=== PATIENT | female | born 1995 | race Caucasian/White ===

== ENCOUNTER 2021-06-23 13:19 | Inpatient (IN) ==
[2021-06-23 14:10] LABS: Appearance Urine Clear (Clear); Bacteria Urine Automated 1+ (Negative); Bilirubin Urine Negative (Negative); Blood Urine Negative (Negative); Cast Urine Automated 0 /lpf (0-5); Color Urine Yellow; Epithelial Cell Urine Auto 20-30 /lpf (0-5); Glucose Urine UA Negative (Negative); Ketones Urine Negative (Negative); Leukocyte Esterase Urine 2+ (Negative); Nitrite Urine Negative (Negative); Protein Urine Negative (Negative); RBC Urine Automated 0-4 /hpf (0-4); Specific Gravity Urine 1.006 (1.000-1.030); Urobilinogen Urine Negative (Negative); pH Urine 7.5 (4.5-7.5)
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
[2021-06-23 14:28] LABS: Amphetamines+Metham, Urine Neg (Neg); Barbiturates, Urine Neg (Neg); Benzodiazepine, Urine Neg (Neg); Cocaine, Urine Neg (Neg); MDMA (Ecstacy), Urine Neg (Neg); Methadone, Urine Neg (Neg); Opiate, Urine Neg (Neg); Phencyclidine, Urine Neg (Neg)
[2021-06-23 14:40] LABS: Basophils # (auto) 0.02 K/uL (0-0.2); Basophils % (auto) 0.3 %; Eosinophils # (auto) 0.04 K/uL (0-0.5); Eosinophils % (auto) 0.5 %; Hematocrit (blood only) 42.6 % (37-47); Immature Granulocytes # (auto) 0.01 K/uL (0.00-0.02); Immature Granulocytes % (auto) 0.1 %; Lymphocytes # (auto) 1.36 K/uL (1.2-3.4); Lymphocytes % (auto) 17.3 %; Mean Corpuscular Hemoglobin 29.8 pg (25-34); Mean Corpuscular Hgb Conc 35.2 g/dL (32-36); Mean Corpuscular Volume 84.5 fL (80-100); Mean Platelet Volume 9.3 fL (7.4-10.4); Monocytes # (auto) 0.55 K/uL (0.11-0.59); Neutrophils # (auto) 5.89 K/uL (1.4-6.5); Neutrophils % (auto) 74.8 %; Platelet Count 284 K/uL (130-400); RDW Coefficient of Variation 12.4 % (11.5-14.5); RDW Standard Deviation 37.7 fL (36.4-46.3); Red Blood Count 5.04 M/uL (4.2-5.4); White Blood Count 7.87 K/uL (4.8-10.8)
[2021-06-23 15:01] LABS: Albumin Level 4.2 gm/dl (3.4-5.0); BUN Creatinine Ratio 12.1 (10-20); Calcium 9.3 mg/dl (8.5-10.1); Creatinine Clr Calc Pharmacy 97.9 ml/min; Est GFR (African American) 125.5 ml/min; Est GFR (Non-African American) 108.3 ml/min; Potassium 3.9 mmol/L (3.5-5.1)
[2021-06-23 15:05] LABS: Pregnancy Test, Serum Negative (Negative)
[2021-06-23 15:11] LABS: Albumin Globulin Ratio 1.1 (0.9-2); Bilirubin,Total 0.4 mg/dl (0.2-1); Globulin 3.8 gm/dl (2.5-4.0); Thyroid Stimulating Hormone 1.08 uIu/ml (0.300-4.500)
[2021-06-23 15:12] LABS: Acetaminophen < 2 ug/ml (10-30)
[2021-06-23 15:13] LABS: Salicylate < 1.7 mg/dl (2.8-20)
[2021-06-23] MEDS ORDERED: SODIUM CHLORIDE 0.65% NA SOLN 45 ML (OCEAN) PRN (18:38)
[2021-06-23] MEDS ORDERED: ACETAMINOPHEN 325 MG TAB PO PRN (18:38)
[2021-06-23] MEDS ORDERED: BISMUTH SUBSALICYLATE LIQD 236 ML PO PRN (18:38)
[2021-06-23] MEDS ORDERED: hydrOXYzine HCl 25 MG TAB PO PRN ×2 (18:38)
[2021-06-23] MEDS ORDERED: ALUMINUM/MAGNESIUM SUSP 30 ML UDC PO PRN (18:38)
[2021-06-23] MEDS ORDERED: MAGNESIUM HYDROXIDE SUSP 30 ML UDC PO PRN (18:38)
[2021-06-23] MEDS ORDERED: FLUARIX QUADRIVALENT 0.5 ML SYR IM ONE (19:46)
[2021-06-24] MEDS ORDERED: ATOMOXETINE HCL 40 MG CAPSULE PO SCH (09:00)
[2021-06-24] MEDS: ESCITALOPRAM OXALATE 20 MG TAB PO SCH (09:35)
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
[2021-06-24] MEDS: POLYETHYLENE (MIRALAX) 17 GM PACK PO SCH (18:03)
[2021-06-25] MEDS: ESCITALOPRAM OXALATE 20 MG TAB PO SCH (08:55)
[2021-06-25] MEDS: ATOMOXETINE HCL 40 MG CAPSULE PO SCH (08:55)
--- NOTE | 2021-06-25 16:37 | Psychiatric Progress Note ---
Date of Service June 25, 2021 Impression / Recommendations Impression The patient is a 26 year old with a history of BEN, MDD, self-harm and ADHD who was admitted for worsening depression and SI with plans. The patient is deemed unstable and requires psychiatric hospitalization for diagnostic clarification, safety and stabilization, medication management and development of further coping skills. She is at high risk of acute harm to self given past suicide attempt, worsening depression, self-harm, Diagnostically seems consistent with possible BPAD type 2 vs MDD vs BPD. Her speech was quite rapid and tangential initially though it slowed down and she more concise as the interview progressed suggestive more of ADHD and anxiety. Past episodes sounding consistent with hypomania, family history of BPAD, early onset and hard to treat depression all seem consistent with BPAD 2 for which an augmentation for mood stabilization and bipolar depression would be helpful. Discussed option of latuda which she will consider. Abilify also an option or could consider cross-taper from lexapro to prozac since she is also on Strattera which offer NE effects. If this is more of a BPD picture then engagement in therapeutic milieu, safety planning, coping skills development, family meeting and establishment of further outpt supports may itself provide enough therapeutic benefit that a medication change may not be necessary. We discussed her symptom history and screenings on the mood disorder questionnaire and dolores BPD screen. Clinically I am not seeing significant evidence of BPD and suspect this is more of a BPAD 2 picture. Discussed again risks, benefits, alternatives of latuda including that it is not FDA-approved for BPAD type 2 and so would be a off-label use. Discussed that benefits would be to address depressive symptoms which have so far been non-responsive to two SSRI trials, she is already on strattera so would not recommend SNRI trial at this point, and she would like to avoid a trial of Wellbutrin nor Prozac given family members having poor responses. She would like to try latuda. Discussed that we will keep it at a low dose and risks including movement side effects (acute dystonia, TD, parkinsonism, akathisia) as well as cardiometabolic risks. (1) Depression with suicidal ideation: (2) ADHD: (3) Anxiety: 06/25/21--Initiate latuda 20mg q dinner for augmentation of depression/BPAD 2. Ordering baseline fasting lipid and glucose labs for tomorrow morning. AIMS score=0. Will continue lexapro and strattera. 06/24/21--Discussed option to augment depression tx with latuda. Will give her mood disorder questionnaire and Dolores BPD screen to complete for diagnostic clarification. Continuing home lexapro and strattera. Adding miralax which she takes at home for constipation. 06/23/21--The patient was admitted to the [facility]) on q15 min checks (behavioral with suicide precautions) for safety. The patient will participate in group, recreational, and milieu therapies and will be offered additional individual and family sessions as clinically appropriate. Inventory Assets Strengths: stable housing, job, family support Needs: therapist, coping skills Risk Factors Assessment : Yes Do You Have Access To A Gun?: No Health Problems: Yes Mental Health Diagnoses: Yes Previous Attempt: Yes Previous Attempt; Highly Lethal: Yes Previous Attempt; Didn't Tell Anyone: Yes Family History of Suicide: Yes Previous Psychiatric Hospitalization: No Hopelessness: Yes Smoker: No Protective Factors Assessment Shinto Beliefs: Yes Employed: Yes ([employer]) Stable Relationships: Yes Supportive Family: Yes Interval History Identifying Information 26 year old with a history of BEN, MDD, self-harm and ADHD who was admitted for worsening depression and SI with plans. Chief Complaint "I'm alright". Review of Systems Sleep Information Total Hours of Sleep: 7.25 Meal Information Percent Meal Consumed - Breakfast: 100 Percent Meal Consumed - Lunch: 100 Percent Meal Consumed - Dinner: 100 Subjective Subjective Patient was seen & assessed and interval progress reviewed with treatment team nursing and social work. She continues to have anxiety and depression but no SI today. She completed a MDQ and BPD screen which we reviewed. She has symptoms consistent with hypomania in the past as well as rating herself as having almost all of the BPD criteria symptoms. She was able to get some more family history of past medication trials. Family members have not responded well to prozac. Another family member also didn't respond well to Wellbutrin. Her mother also told her she had been on risperidone in the past as a child and developed more aggression on this. Physical Exam Psychiatric Orientation: alert and oriented x 3 Apperance: appropriately dressed and appropriately groomed Eye Contact: good eye contact Motor Behavior: steady gait and station and no abnormal motor movements Speech: normal rate/rhythm/volume of speech Affect: + anxious affect Mood: + depressed mood and + anxious mood Thought Process: + tangential thought process Thought Content: reality based without delusions Suicidal Thoughts: denies suicidal thoughts, denies suicidal plan and denies suicidal intent Homicidal Thoughts: denies homicidal thoughts Hallucinations: no auditory hallucinations and no visual hallucinations Cognition: recent memory grossly intact, remote memory grossly intact, attention grossly intact and language grossly intact Estimated Intelligence: consistent with education level Insight: + fair insight Judgement: + impaired judgement Vital Signs (Past 24 Hours) Last Vital Signs Temp 36.5 C 06/25/21 06:00 Pulse 87 06/25/21 06:20 Resp 14 06/25/21 06:00 BP 102/70 06/25/21 06:20 Pulse Ox 99 06/23/21 19:01 Results & Data ([facility]) Current Inpatient Medications Current Inpatient Medications: Current Inpatient Medications Acetaminophen (Acetaminophen 325 Mg Tab) 650 mg PO Q4H PRN PRN Reason: Headache or Minor Fever Stop: 07/23/21 18:37 Last Admin: 06/23/21 20:55 Dose: 650 mg Documented by: Al Hydrox/Mg Hydrox/Simethicone (Aluminum/Magnesium Susp 30 Ml Udc) 30 ml PO Q4H PRN PRN Reason: GI Upset Stop: 07/23/21 18:37 Atomoxetine HCl (Atomoxetine Hcl 40 Mg Capsule) 40 mg PO DAILY DARLYN Stop: 07/25/21 08:59 Last Admin: 06/25/21 08:55 Dose: 40 mg Documented by: Bismuth Subsalicylate (Bismuth Subsalicylate Liqd 236 Ml) 15 ml PO PRN PRN PRN Reason: Loose Stool Stop: 07/23/21 18:37 Escitalopram Oxalate (Escitalopram Oxalate 20 Mg Tab) 20 mg PO QAM DARLYN Stop: 07/24/21 08:59 Last Admin: 06/25/21 08:55 Dose: 20 mg Documented by: Hydroxyzine HCl (Hydroxyzine Hcl 25 Mg Tab) 50 mg PO HSZ PRN PRN Reason: Insomnia Stop: 07/23/21 18:37 Hydroxyzine HCl (Hydroxyzine Hcl 25 Mg Tab) 25 mg PO Q4H PRN PRN Reason: Anxiety Stop: 07/23/21 18:37 Last Admin: 06/25/21 11:28 Dose: 25 mg Documented by: Magnesium Hydroxide (Magnesium Hydroxide Susp 30 Ml Udc) 30 ml PO DAILY PRN PRN Reason: Constipation Stop: 07/23/21 18:37 Polyethylene Glycol (Polyethylene (Miralax) 17 Gm Pack) 17 gm PO QDD DARLYN Stop: 07/24/21 17:44 Last Admin: 06/24/21 18:03 Dose: 17 gm Documented by: Sodium Chloride (Sodium Chloride 0.65% Na Soln 45 Ml ([place])) 1 - 2 sprays NA PRN PRN PRN Reason: Nasal Dryness/Congestion Stop: 07/23/21 18:37 Mental Health & Subst Abuse Tx Therapist Name of Therapist: None System Integration Engineer Name of System Integration Engineer: None Post Discharge Appointments Primary Care Physician Name Of Family Doctor: Dr. Iggy Alanis
[2021-06-25] MEDS: POLYETHYLENE (MIRALAX) 17 GM PACK PO SCH (17:22)
[2021-06-25] MEDS: LURASIDONE HCL 40 MG TAB PO SCH (17:51)
--- NOTE | 2021-06-26 08:38 | Psychiatric Progress Note ---
Date of Service June 26, 2021 Impression / Recommendations Impression The patient is a 26 year old with a history of BEN, MDD, self-harm and ADHD who was admitted for worsening depression and SI with plans. The patient is deemed unstable and requires psychiatric hospitalization for diagnostic clarification, safety and stabilization, medication management and development of further coping skills. She is at high risk of acute harm to self given past suicide attempt, worsening depression, self-harm, Diagnostically seems consistent with possible BPAD type 2 vs MDD vs BPD. Her speech was quite rapid and tangential initially though it slowed down and she more concise as the interview progressed suggestive more of ADHD and anxiety. Past episodes sounding consistent with hypomania, family history of BPAD, early onset and hard to treat depression all seem consistent with BPAD 2 for which an augmentation for mood stabilization and bipolar depression would be helpful. Discussed option of latuda which she will consider. Abilify also an option or could consider cross-taper from lexapro to prozac since she is also on Strattera which offer NE effects. If this is more of a BPD picture then engagement in therapeutic milieu, safety planning, coping skills development, family meeting and establishment of further outpt supports may itself provide enough therapeutic benefit that a medication change may not be necessary. We discussed her symptom history and screenings on the mood disorder questionnaire and dolores BPD screen. Clinically I am not seeing significant evidence of BPD and suspect this is more of a BPAD 2 picture. Discussed again risks, benefits, alternatives of latuda including that it is not FDA-approved for BPAD type 2 and so would be a off-label use. Discussed that benefits would be to address depressive symptoms which have so far been non-responsive to two SSRI trials, she is already on strattera so would not recommend SNRI trial at this point, and she would like to avoid a trial of Wellbutrin nor Prozac given family members having poor responses. She would like to try latuda. Discussed that we will keep it at a low dose and risks including movement side effects (acute dystonia, TD, parkinsonism, akathisia) as well as cardiometabolic risks. Baseline fasting labs were normal. Having some side effects to latuda but wants to try it for another day before deciding if she wants to discontinue it. (1) Depression with suicidal ideation: (2) ADHD: (3) Anxiety: 06/26/21--Fasting glucose and lipid labs were WNL. Not acting on thoughts of self-harm. She's experiencing some sedation and emotional numbing since starting the latuda but she would like to try it for another day to see if this lessens or resolves. Discussed that if symptoms persist and latuda is discontinued then could consider augmentation with Wellbutrin or abilify or a trial of fluoxetine versus therapeutic focus on CBT/DBT strategies to manage ongoing mood symptoms. 06/25/21--Initiate latuda 20mg q dinner for augmentation of depression/BPAD 2. Ordering baseline fasting lipid and glucose labs for tomorrow morning. AIMS score=0. Will continue lexapro and strattera. 06/24/21--Discussed option to augment depression tx with latuda. Will give her mood disorder questionnaire and Dolores BPD screen to complete for diagnostic clarification. Continuing home lexapro and strattera. Adding miralax which she takes at home for constipation. 06/23/21--The patient was admitted to the [facility] ([facility] mental health unit) on q15 min checks (behavioral with suicide precautions) for safety. The patient will participate in group, recreational, and milieu therapies and will be offered additional individual and family sessions as clinically appropriate. Inventory Assets Strengths: stable housing, job, family support Needs: therapist, coping skills Risk Factors Assessment : Yes Do You Have Access To A Gun?: No Health Problems: Yes Mental Health Diagnoses: Yes Previous Attempt: Yes Previous Attempt; Highly Lethal: Yes Previous Attempt; Didn't Tell Anyone: Yes Family History of Suicide: Yes Previous Psychiatric Hospitalization: No Hopelessness: Yes Smoker: No Protective Factors Assessment Taoism Beliefs: Yes Employed: Yes ([employer]) Stable Relationships: Yes Supportive Family: Yes Interval History Identifying Information 26 year old with a history of BEN, MDD, self-harm and ADHD who was admitted for worsening depression and SI with plans. Chief Complaint "I feel like a bog body". Review of Systems Sleep Information Total Hours of Sleep: 6.75 Meal Information Percent Meal Consumed - Breakfast: 100 Percent Meal Consumed - Lunch: 100 Percent Meal Consumed - Dinner: 100 Subjective Subjective Patient was seen & assessed and interval progress reviewed with treatment team nursing and social work. Had some self-harm urges yesterday but was able to calm down and came to staff for support. Attending groups. Had fasting labs this morning. Reviewed her fasting labs together which were normal. She feels like the latuda last night made her tired which did help her sleep well but then today she felt "numb" and like a "bog body" which she described as essentially "zombies but without the missing brain". She does note she feels less depressed today. Physical Exam Psychiatric Orientation: alert and oriented x 3 Apperance: appropriately dressed and appropriately groomed Eye Contact: good eye contact Motor Behavior: steady gait and station and no abnormal motor movements Speech: normal rate/rhythm/volume of speech Affect: + anxious affect Mood: + depressed mood Thought Process: + perseveration Thought Content: reality based without delusions Suicidal Thoughts: denies suicidal thoughts Homicidal Thoughts: denies homicidal thoughts Hallucinations: no auditory hallucinations and no visual hallucinations Cognition: recent memory grossly intact, remote memory grossly intact, attention grossly intact and language grossly intact Estimated Intelligence: consistent with education level Insight: + fair insight Judgement: + fair judgement Vital Signs (Past 24 Hours) Last Vital Signs Temp 36.5 C 06/26/21 06:00 Pulse 82 06/26/21 06:42 Resp 14 06/26/21 06:00 BP 100/67 06/26/21 06:42 Pulse Ox 99 06/23/21 19:01 Results & Data ([facility]) Laboratory Results Laboratory Results - last 24 hr 06/26/21 07:21 Fasting Glucose Pending Triglycerides Pending Cholesterol Pending LDL Cholesterol, Calc Pending VLDL Cholesterol, Calc Pending HDL Cholesterol Pending Cholesterol/HDL Ratio Pending Current Inpatient Medications Current Inpatient Medications: Current Inpatient Medications Acetaminophen (Acetaminophen 325 Mg Tab) 650 mg PO Q4H PRN PRN Reason: Headache or Minor Fever Stop: 07/23/21 18:37 Last Admin: 06/23/21 20:55 Dose: 650 mg Documented by: Al Hydrox/Mg Hydrox/Simethicone (Aluminum/Magnesium Susp 30 Ml Udc) 30 ml PO Q4H PRN PRN Reason: GI Upset Stop: 07/23/21 18:37 Atomoxetine HCl (Atomoxetine Hcl 40 Mg Capsule) 40 mg PO DAILY DARLYN Stop: 07/25/21 08:59 Last Admin: 06/25/21 08:55 Dose: 40 mg Documented by: Bismuth Subsalicylate (Bismuth Subsalicylate Liqd 236 Ml) 15 ml PO PRN PRN PRN Reason: Loose Stool Stop: 07/23/21 18:37 Escitalopram Oxalate (Escitalopram Oxalate 20 Mg Tab) 20 mg PO QAM DARLYN Stop: 07/24/21 08:59 Last Admin: 06/25/21 08:55 Dose: 20 mg Documented by: Hydroxyzine HCl (Hydroxyzine Hcl 25 Mg Tab) 50 mg PO HSZ PRN PRN Reason: Insomnia Stop: 07/23/21 18:37 Hydroxyzine HCl (Hydroxyzine Hcl 25 Mg Tab) 25 mg PO Q4H PRN PRN Reason: Anxiety Stop: 07/23/21 18:37 Last Admin: 06/25/21 11:28 Dose: 25 mg Documented by: Lurasidone HCl (Lurasidone Hcl 40 Mg Tab) 20 mg PO DAILYBD DARLYN Stop: 07/25/21 17:14 Last Admin: 06/25/21 17:51 Dose: 20 mg Documented by: Magnesium Hydroxide (Magnesium Hydroxide Susp 30 Ml Udc) 30 ml PO DAILY PRN PRN Reason: Constipation Stop: 07/23/21 18:37 Polyethylene Glycol (Polyethylene (Miralax) 17 Gm Pack) 17 gm PO QDD DARLYN Stop: 07/24/21 17:44 Last Admin: 06/25/21 17:22 Dose: 17 gm Documented by: Sodium Chloride (Sodium Chloride 0.65% Na Soln 45 Ml ([place])) 1 - 2 sprays NA PRN PRN PRN Reason: Nasal Dryness/Congestion Stop: 07/23/21 18:37 Mental Health & Subst Abuse Tx Therapist Name of Therapist: None Motorsports Technician Name of Motorsports Technician: None Post Discharge Appointments Primary Care Physician Name Of Family Doctor: Dr. Iggy Alanis
[2021-06-26 08:41] LABS: Glucose Fasting 93 mg/dl (70-99)
[2021-06-26 08:48] LABS: Chol HDL Ratio 3; Cholesterol 147 mg/dl (0-200); HDL Cholesterol 55 mg/dl; LDL Cholesterol Calculated 77 mg/dl; Triglycerides 76 mg/dl (0-150); VLDL Cholesterol 15 mg/dl
[2021-06-26] MEDS: ATOMOXETINE HCL 40 MG CAPSULE PO SCH (09:29)
[2021-06-26] MEDS: ESCITALOPRAM OXALATE 20 MG TAB PO SCH (09:29)
[2021-06-26] MEDS: POLYETHYLENE (MIRALAX) 17 GM PACK PO SCH (17:23)
[2021-06-26] MEDS: LURASIDONE HCL 40 MG TAB PO SCH (17:23)
[2021-06-27] MEDS: ATOMOXETINE HCL 40 MG CAPSULE PO SCH (09:08)
[2021-06-27] MEDS: ESCITALOPRAM OXALATE 20 MG TAB PO SCH (09:08)
--- NOTE | 2021-06-27 10:29 | Psychiatric Progress Note ---
Date of Service June 27, 2021 Impression / Recommendations Impression The patient is a 26 year old with a history of BEN, MDD, self-harm and ADHD who was admitted for worsening depression and SI with plans. Trial of Latuda as augmentation for depression. Patient does not appear to meet full criteria for a hypomanic episode and reviewed that patients with a family history of bipolar often respond to mood stabilizers. Family history increases risk of any mood disorder and she could meet criteria for bipolar disorder in the future. Reviewed that her interpersonal issues are more likely mood and personality driven rather than borderline personality disorder at this time. (1) Depression with suicidal ideation: (2) ADHD: (3) Anxiety: 06/27/21--Reviewed care by Dr. Aldrich in italics. Continue current meds and treatment plan. 06/26/21--Fasting glucose and lipid labs were WNL. Not acting on thoughts of self-harm. She's experiencing some sedation and emotional numbing since starting the latuda but she would like to try it for another day to see if this lessens or resolves. Discussed that if symptoms persist and latuda is discontinued then could consider augmentation with Wellbutrin or abilify or a trial of fluoxetine versus therapeutic focus on CBT/DBT strategies to manage ongoing mood symptoms. 06/25/21--Initiate latuda 20mg q dinner for augmentation of depression/BPAD 2. Ordering baseline fasting lipid and glucose labs for tomorrow morning. AIMS score=0. Will continue lexapro and strattera. 06/24/21--Discussed option to augment depression tx with latuda. Will give her mood disorder questionnaire and Christiana BPD screen to complete for diagnostic clarification. Continuing home lexapro and strattera. Adding miralax which she takes at home for constipation. 06/23/21--The patient was admitted to the [facility] ([facility] mental health unit) on q15 min checks (behavioral with suicide precautions) for safety. The patient will participate in group, recreational, and milieu therapies and will b e offered additional individual and family sessions as clinically appropriate. Inventory Assets Strengths: stable housing, job, family support Needs: therapist, coping skills Risk Factors Assessment : Yes Do You Have Access To A Gun?: No Health Problems: Yes Mental Health Diagnoses: Yes Previous Attempt: Yes Previous Attempt; Highly Lethal: Yes Previous Attempt; Didn't Tell Anyone: Yes Family History of Suicide: Yes Previous Psychiatric Hospitalization: No Hopelessness: Yes Smoker: No Protective Factors Assessment Gnosticism Beliefs: Yes Employed: Yes ([employer]) Stable Relationships: Yes Supportive Family: Yes Interval History Identifying Information 26 year old with a history of BEN, MDD, self-harm and ADHD who was admitted for worsening depression and SI with plans. Chief Complaint "yeah things are coming along". Review of Systems Sleep Information Total Hours of Sleep: 5 Meal Information Percent Meal Consumed - Breakfast: 100 Percent Meal Consumed - Lunch: 100 Percent Meal Consumed - Dinner: 100 Subjective Subjective Patient was seen & assessed and interval progress reviewed with nursing and social work. Impulse control improving in the milieu, mainly talking out of turn/topic at times. Has discussed her mother's bipolar symptoms. Plans to return to work at [employer]. Asked appropriate questions re: her diagnosis and reconsented for Latuda following discussion of risks and benefits. Physical Exam Psychiatric Orientation: alert and oriented x 3 Apperance: appropriately dressed and appropriately groomed Eye Contact: good eye contact Motor Behavior: steady gait and station and no abnormal motor movements Speech: normal rate/rhythm/volume of speech Affect: + anxious affect Mood: + depressed mood and + anxious mood Thought Process: + concrete thought process Thought Content: reality based without delusions Suicidal Thoughts: denies suicidal thoughts, denies suicidal plan and denies suicidal intent Homicidal Thoughts: denies homicidal thoughts Hallucinations: no auditory hallucinations and no visual hallucinations Cognition: recent memory grossly intact, remote memory grossly intact, attention grossly intact and language grossly intact Estimated Intelligence: consistent with education level Insight: + fair insight Vital Signs (Past 24 Hours) Last Vital Signs Temp 36.6 C 06/27/21 06:58 Pulse 80 06/27/21 06:58 Resp 16 06/27/21 06:58 BP 97/65 L 06/27/21 07:00 Pulse Ox 99 06/23/21 19:01 Results & Data ([facility]) Current Inpatient Medications Current Inpatient Medications: Current Inpatient Medications Acetaminophen (Acetaminophen 325 Mg Tab) 650 mg PO Q4H PRN PRN Reason: Headache or Minor Fever Stop: 07/23/21 18:37 Last Admin: 06/23/21 20:55 Dose: 650 mg Documented by: Al Hydrox/Mg Hydrox/Simethicone (Aluminum/Magnesium Susp 30 Ml Udc) 30 ml PO Q4H PRN PRN Reason: GI Upset Stop: 07/23/21 18:37 Atomoxetine HCl (Atomoxetine Hcl 40 Mg Capsule) 40 mg PO DAILY DARLYN Stop: 07/25/21 08:59 Last Admin: 06/27/21 09:08 Dose: 40 mg Documented by: Bismuth Subsalicylate (Bismuth Subsalicylate Liqd 236 Ml) 15 ml PO PRN PRN PRN Reason: Loose Stool Stop: 07/23/21 18:37 Escitalopram Oxalate (Escitalopram Oxalate 20 Mg Tab) 20 mg PO QAM DARLYN Stop: 07/24/21 08:59 Last Admin: 06/27/21 09:08 Dose: 20 mg Documented by: Hydroxyzine HCl (Hydroxyzine Hcl 25 Mg Tab) 50 mg PO HSZ PRN PRN Reason: Insomnia Stop: 07/23/21 18:37 Hydroxyzine HCl (Hydroxyzine Hcl 25 Mg Tab) 25 mg PO Q4H PRN PRN Reason: Anxiety Stop: 07/23/21 18:37 Last Admin: 06/25/21 11:28 Dose: 25 mg Documented by: Lurasidone HCl (Lurasidone Hcl 40 Mg Tab) 20 mg PO DAILYBD DARLYN Stop: 07/25/21 17:14 Last Admin: 06/26/21 17:23 Dose: 20 mg Documented by: Magnesium Hydroxide (Magnesium Hydroxide Susp 30 Ml Udc) 30 ml PO DAILY PRN PRN Reason: Constipation Stop: 07/23/21 18:37 Polyethylene Glycol (Polyethylene (Miralax) 17 Gm Pack) 17 gm PO QDD DARLYN Stop: 07/24/21 17:44 Last Admin: 06/26/21 17:23 Dose: 17 gm Documented by: Sodium Chloride (Sodium Chloride 0.65% Na Soln 45 Ml ([place])) 1 - 2 sprays NA PRN PRN PRN Reason: Nasal Dryness/Congestion Stop: 07/23/21 18:37 Mental Health & Subst Abuse Tx Therapist Name of Therapist: None Art Glass Setter Name of Art Glass Setter: None Post Discharge Appointments Primary Care Physician Name Of Family Doctor: Dr. Iggy Alanis
[2021-06-27] MEDS: POLYETHYLENE (MIRALAX) 17 GM PACK PO SCH (17:42)
[2021-06-27] MEDS: LURASIDONE HCL 40 MG TAB PO SCH (17:43)
[2021-06-28] MEDS: ATOMOXETINE HCL 40 MG CAPSULE PO SCH (09:35)
[2021-06-28] MEDS: ESCITALOPRAM OXALATE 20 MG TAB PO SCH (09:36)
--- NOTE | 2021-06-28 16:36 | Psychiatric Progress Note ---
Date of Service June 28, 2021 Impression / Recommendations Impression The patient is a 26 year old with a history of BEN, MDD, self-harm and ADHD who was admitted for worsening depression and SI with plans. Trial of Latuda as augmentation for depression. Patient does not appear to meet full criteria for a hypomanic episode and her reactivity to interpersonal conflicts and impulsivity more likely combo of mood disorder with ADHD rather than borderline personality disorder at this time. (1) Depression with suicidal ideation: (2) ADHD: (3) Anxiety: 06/28/21--Psychiatrist participated in a portion of the family meeting to review diagnostic impressions. Parents are supportive and agree with diagnoses and treatment plan. 06/27/21--Reviewed care by Dr. Aldrich in italics. Continue current meds and treatment plan. 06/26/21--Fasting glucose and lipid labs were WNL. Not acting on thoughts of self-harm. She's experiencing some sedation and emotional numbing since starting the latuda but she would like to try it for another day to see if this lessens or resolves. Discussed that if symptoms persist and latuda is discontinued then could consider augmentation with Wellbutrin or abilify or a trial of fluoxetine versus therapeutic focus on CBT/DBT strategies to manage ongoing mood symptoms. 06/25/21--Initiate latuda 20mg q dinner for augmentation of depression/BPAD 2. Ordering baseline fasting lipid and glucose labs for tomorrow morning. AIMS score=0. Will continue lexapro and strattera. 06/24/21--Discussed option to augment depression tx with latuda. Will give her mood disorder questionnaire and Christiana BPD screen to complete for diagnostic clarification. Continuing home lexapro and strattera. Adding miralax which she takes at home for constipation. 06/23/21--The patient was admitted to the [facility] ([facility] inpatient mental health unit) on q15 min checks (behavioral with suicide precautions) for safety. The patient will participate in group, recreational, and milieu therapies and will be offered additional individual and family sessions as clinically appropriate. Risk Factors Assessment : Yes Do You Have Access To A Gun?: No Health Problems: Yes Mental Health Diagnoses: Yes Previous Attempt: Yes Previous Attempt; Highly Lethal: Yes Previous Attempt; Didn't Tell Anyone: Yes Family History of Suicide: Yes Previous Psychiatric Hospitalization: No Hopelessness: Yes Smoker: No Protective Factors Assessment Jehovah'S Witness Beliefs: Yes Employed: Yes ([employer]) Stable Relationships: Yes Supportive Family: Yes Interval History Identifying Information 26 year old with a history of BEN, MDD, self-harm and ADHD who was admitted for worsening depression and SI with plans. 201 commitment. Chief Complaint "she's not part of my family and not something I want to deal with here". referring to step mother. Review of Systems Sleep Information Total Hours of Sleep: 6 Meal Information Percent Meal Consumed - Breakfast: 100 Percent Meal Consumed - Lunch: 100 Percent Meal Consumed - Dinner: 100 Subjective Subjective Patient was seen & assessed and interval progress reviewed with nursing and social work. Patient reports some anxiety related to groups, doesn't want to "talk too much but I get triggered by what people say" and is not sure what she wants to do with that. Tolerating medication. Physical Exam Psychiatric Orientation: alert and oriented x 3 Apperance: appropriately dressed and appropriately groomed Eye Contact: good eye contact Motor Behavior: steady gait and station and no abnormal motor movements Speech: normal rate/rhythm/volume of speech; no pressured speech Affect: + anxious affect Mood: + depressed mood and + anxious mood Thought Process: linear/logical thought process Thought Content: reality based without delusions Suicidal Thoughts: denies suicidal thoughts, denies suicidal plan and denies suicidal intent Homicidal Thoughts: denies homicidal thoughts Hallucinations: no auditory hallucinations and no visual hallucinations Cognition: recent memory grossly intact, remote memory grossly intact, attention grossly intact and language grossly intact Estimated Intelligence: consistent with education level Insight: + fair insight Judgement: + fair judgement Vital Signs (Past 24 Hours) Last Vital Signs Temp 36.8 C 06/28/21 06:41 Pulse 72 06/28/21 06:42 Resp 16 06/28/21 06:41 BP 95/61 L 06/28/21 06:42 Pulse Ox 99 06/23/21 19:01 Results & Data ([facility]) Current Inpatient Medications Current Inpatient Medications: Current Inpatient Medications Acetaminophen (Acetaminophen 325 Mg Tab) 650 mg PO Q4H PRN PRN Reason: Headache or Minor Fever Stop: 07/23/21 18:37 Last Admin: 06/23/21 20:55 Dose: 650 mg Documented by: Al Hydrox/Mg Hydrox/Simethicone (Aluminum/Magnesium Susp 30 Ml Udc) 30 ml PO Q4H PRN PRN Reason: GI Upset Stop: 07/23/21 18:37 Atomoxetine HCl (Atomoxetine Hcl 40 Mg Capsule) 40 mg PO DAILY DARLYN Stop: 07/25/21 08:59 Last Admin: 06/28/21 09:35 Dose: 40 mg Documented by: Bismuth Subsalicylate (Bismuth Subsalicylate Liqd 236 Ml) 15 ml PO PRN PRN PRN Reason: Loose Stool Stop: 07/23/21 18:37 Escitalopram Oxalate (Escitalopram Oxalate 20 Mg Tab) 20 mg PO QAM DARLYN Stop: 07/24/21 08:59 Last Admin: 06/28/21 09:36 Dose: 20 mg Documented by: Hydroxyzine HCl (Hydroxyzine Hcl 25 Mg Tab) 50 mg PO HSZ PRN PRN Reason: Insomnia Stop: 07/23/21 18:37 Hydroxyzine HCl (Hydroxyzine Hcl 25 Mg Tab) 25 mg PO Q4H PRN PRN Reason: Anxiety Stop: 07/23/21 18:37 Last Admin: 06/25/21 11:28 Dose: 25 mg Documented by: Lurasidone HCl (Lurasidone Hcl 40 Mg Tab) 20 mg PO DAILYBD DARLYN Stop: 07/25/21 17:14 Last Admin: 06/27/21 17:43 Dose: 20 mg Documented by: Magnesium Hydroxide (Magnesium Hydroxide Susp 30 Ml Udc) 30 ml PO DAILY PRN PRN Reason: Constipation Stop: 07/23/21 18:37 Polyethylene Glycol (Polyethylene (Miralax) 17 Gm Pack) 17 gm PO QDD DARLYN Stop: 07/24/21 17:44 Last Admin: 06/27/21 17:42 Dose: 17 gm Documented by: Sodium Chloride (Sodium Chloride 0.65% Na Soln 45 Ml ([place])) 1 - 2 sprays NA PRN PRN PRN Reason: Nasal Dryness/Congestion Stop: 07/23/21 18:37 Mental Health & Subst Abuse Tx Therapist Name of Therapist: None Pump Runner Name of Pump Runner: None Post Discharge Appointments Primary Care Physician Name Of Family Doctor: Dr. Iggy Alanis
[2021-06-28] MEDS: LURASIDONE HCL 40 MG TAB PO SCH (17:23)
[2021-06-28] MEDS: POLYETHYLENE (MIRALAX) 17 GM PACK PO SCH (17:23)
--- NOTE | 2021-06-29 05:58 | Psychiatric Progress Note ---
Date of Service June 29, 2021 Impression / Recommendations Impression The patient is a 26 year old with a history of BEN, MDD, self-harm and ADHD who was admitted for worsening depression and SI with plans. Trial of Latuda as augmentation for depression. Patient does not appear to meet full criteria for a hypomanic episode and her reactivity to interpersonal conflicts and impulsivity more likely combo of mood disorder with ADHD rather than borderline personality disorder at this time. 06/29/21: improving (1) Depression with suicidal ideation: (2) ADHD: (3) Anxiety: 06/29/21: declines titration of Strattera given risk of GI side effects and still adjusting to Latuda. 06/28/21--Psychiatrist participated in a portion of the family meeting to review diagnostic impressions. Parents are supportive and agree with diagnoses and t reatment plan. 06/27/21--Reviewed care by Dr. Aldrich in italics. Continue current meds and treatment plan. 06/26/21--Fasting glucose and lipid labs were WNL. Not acting on thoughts of s elf-harm. She's experiencing some sedation and emotional numbing since starting the latuda but she would like to try it for another day to see if this lessens or resolves. Discussed that if symptoms persist and latuda is discontinued then could consider augmentation with Wellbutrin or abilify or a trial of fluoxetine versus therapeutic focus on CBT/DBT strategies to manage ongoing mood symptoms. 06/25/21--Initiate latuda 20mg q dinner for augmentation of depression/BPAD 2. Ordering baseline fasting lipid and glucose labs for tomorrow morning. AIMS score=0. Will continue lexapro and strattera. 06/24/21--Discussed option to augment depression tx with latuda. Will give her mood disorder questionnaire and Christiana BPD screen to complete for diagnostic clarification. Continuing home lexapro and strattera. Adding miralax which she takes at home for constipation. 06/23/21--The patient was admitted to the [facility] ([facility] inpatient mental health unit) on q15 min checks (behavioral with suicide precautions) for safety. The patient will participate in group, recreational, and milieu therapies and will be offered additional individual and family sessions as clinically appropriate. Risk Factors Assessment : Yes Do You Have Access To A Gun?: No Health Problems: Yes Mental Health Diagnoses: Yes Previous Attempt: Yes Previous Attempt; Highly Lethal: Yes Previous Attempt; Didn't Tell Anyone: Yes Family History of Suicide: Yes Previous Psychiatric Hospitalization: No Hopelessness: Yes Smoker: No Protective Factors Assessment Mandaeism Beliefs: Yes Employed: Yes ([employer]) Stable Relationships: Yes Supportive Family: Yes Interval History Identifying Information 26 year old with a history of BEN, MDD, self-harm and ADHD who was admitted for worsening depression and SI with plans. 201 commitment. Chief Complaint "I'm sad my previous therapist retired". Review of Systems Sleep Information Total Hours of Sleep: 6 Meal Information Percent Meal Consumed - Breakfast: 100 Percent Meal Consumed - Lunch: 100 Percent Meal Consumed - Dinner: 100 Subjective Subjective Patient was seen & assessed and interval progress reviewed with treatment team. Now states used to see Cara Rdz at [facility]. hx of care with Dr. Kern 7- 14 yo. Discussed how neurofeedback may help her ADHD symptoms. Physical Exam Psychiatric Orientation: alert and oriented x 3 Apperance: appropriately dressed and appropriately groomed Eye Contact: good eye contact Motor Behavior: no abnormal motor movements Speech: normal rate/rhythm/volume of speech Affect: + anxious affect Mood: no depressed mood Thought Process: goal directed thought process Thought Content: reality based without delusions Suicidal Thoughts: denies suicidal thoughts Homicidal Thoughts: denies homicidal thoughts Hallucinations: no auditory hallucinations and no visual hallucinations Cognition: attention grossly intact and language grossly intact Estimated Intelligence: consistent with education level Vital Signs (Past 24 Hours) Last Vital Signs Temp 36.6 C 06/28/21 21:45 Pulse 72 06/28/21 06:42 Resp 16 06/28/21 06:41 BP 95/61 L 06/28/21 06:42 Pulse Ox 99 06/23/21 19:01 Results & Data ([facility]) Current Inpatient Medications Current Inpatient Medications: Current Inpatient Medications Acetaminophen (Acetaminophen 325 Mg Tab) 650 mg PO Q4H PRN PRN Reason: Headache or Minor Fever Stop: 07/23/21 18:37 Last Admin: 06/23/21 20:55 Dose: 650 mg Documented by: Al Hydrox/Mg Hydrox/Simethicone (Aluminum/Magnesium Susp 30 Ml Udc) 30 ml PO Q4H PRN PRN Reason: GI Upset Stop: 07/23/21 18:37 Atomoxetine HCl (Atomoxetine Hcl 40 Mg Capsule) 40 mg PO DAILY DARLYN Stop: 07/25/21 08:59 Last Admin: 06/28/21 09:35 Dose: 40 mg Documented by: Bismuth Subsalicylate (Bismuth Subsalicylate Liqd 236 Ml) 15 ml PO PRN PRN PRN Reason: Loose Stool Stop: 07/23/21 18:37 Escitalopram Oxalate (Escitalopram Oxalate 20 Mg Tab) 20 mg PO QAM DARLYN Stop: 07/24/21 08:59 Last Admin: 06/28/21 09:36 Dose: 20 mg Documented by: Hydroxyzine HCl (Hydroxyzine Hcl 25 Mg Tab) 50 mg PO HSZ PRN PRN Reason: Insomnia Stop: 07/23/21 18:37 Hydroxyzine HCl (Hydroxyzine Hcl 25 Mg Tab) 25 mg PO Q4H PRN PRN Reason: Anxiety Stop: 07/23/21 18:37 Last Admin: 06/25/21 11:28 Dose: 25 mg Documented by: Lurasidone HCl (Lurasidone Hcl 40 Mg Tab) 20 mg PO DAILYBD DARLYN Stop: 07/25/21 17:14 Last Admin: 06/28/21 17:23 Dose: 20 mg Documented by: Magnesium Hydroxide (Magnesium Hydroxide Susp 30 Ml Udc) 30 ml PO DAILY PRN PRN Reason: Constipation Stop: 07/23/21 18:37 Polyethylene Glycol (Polyethylene (Miralax) 17 Gm Pack) 17 gm PO QDD DARLYN Stop: 07/24/21 17:44 Last Admin: 06/28/21 17:23 Dose: 17 gm Documented by: Sodium Chloride (Sodium Chloride 0.65% Na Soln 45 Ml (Kinney)) 1 - 2 sprays NA PRN PRN PRN Reason: Nasal Dryness/Congestion Stop: 07/23/21 18:37 Mental Health & Subst Abuse Tx Therapist Name of Therapist: None Stores Despatch Hand Name of Stores Despatch Hand: None Post Discharge Appointments Primary Care Physician Name Of Family Doctor: Dr. Iggy Alanis
[2021-06-29] MEDS: ESCITALOPRAM OXALATE 20 MG TAB PO SCH (08:40)
[2021-06-29] MEDS: ATOMOXETINE HCL 40 MG CAPSULE PO SCH (08:40)
[2021-06-29] MEDS: POLYETHYLENE (MIRALAX) 17 GM PACK PO SCH (17:26)
[2021-06-29] MEDS: LURASIDONE HCL 40 MG TAB PO SCH (17:49)
[2021-06-30] MEDS: ATOMOXETINE HCL 40 MG CAPSULE PO SCH (08:43)
[2021-06-30] MEDS: ESCITALOPRAM OXALATE 20 MG TAB PO SCH (08:44)
--- NOTE | 2021-06-30 10:21 | Discharge Summary ---
Date of Service June 30, 2021 History of Present Illness Per Dr. Aldrich on admission: Rachel presents for psychiatric admission for worsening depression and SI in the context of multiple psychosocial stressors. She has a long history of depression and anxiety, starting in childhood, which has been difficult to treat even with medications and therapy. Starting in June she had worsening depression after various stressors including moving into her first apartment alone, serving as the maid of honor in her sister's wedding and managing increasing obligations at work after a co-workers sudden departure. In addition she describes a long-term stressor of being rejected by her step-mother whom she believes started to distance herself from Rachel when she began struggling with depression. This has been very painful emotionally for her. She describes depressive symptoms of decreased energy, anhedonia, decreased concentration, hopelessness, helplessness, psychic distress and SI. Over the last week she's also experienced a sense of anxiety and hopelessness from achieving important milestones of independence such as getting a good job with benefits, a car and her own apartment and yet still feeling depressed and unhappy. Lately she's been wondering if she has BPD and felt upset after her mother discussed this concern with her step-mother and father who she fears may now distance themselves from her even further. And then she got a very upsetting text from an old work colleague which contained vulgar language in response to what she thought was a very appropriate text. This caused her to question her reality and she became increasingly distraught and was unable to reach her mom by phone. She started to think about dying by inhaling bleach fumes, cutting herself or inhaling carbon monoxide and had gotten out a knife when she decided to call 911 for help. Physical Exam Mental Examination See admission H&P and DOD summary. Vital Signs (Past 24 Hours) Last Vital Signs Temp 36.9 C 06/30/21 06:42 Pulse 80 06/30/21 06:42 Resp 16 06/30/21 06:42 BP 92/56 L 06/30/21 06:42 Pulse Ox 99 06/23/21 19:01 Principal Diagnosis depression with suicidal ideation Psychiatric Data See daily stay summary. In short, safety was maintained and the patient was cooperative with care. Medication changes included augmentation of SSRI with Latuda by Dr. Aldrich and they tolerated this well. A family session was held with mother and step father and safety plan was completed prior to discharge. She was educated re: risks of her current medications and need for ongoing monitoring. Discussions included but were not limited to FDA warnings re: SI and need for monitoring for metabolic abnormalities and movement disorders. Day of Discharge Assessment Today the patient voices readiness for discharge. They note improvement in mood and deny thoughts to harm self or others. Thoughts remain organized and they are improved from admission. There is no evidence of psychosis. They agree to take mediations as prescribed and keep follow-up appointments. They are stable for discharge to outpatient level of care. Transition of Care Transition Of Care Record: was reviewed with the patient Advance Directives Advance Directives Information Provided: Yes Advance Directives: No Mental Health Advance Directive: No Advance Directives on File: No Living Will: No Power of Airplane Designer: No Advance Directives Reason:: Declines as Mental Health Visit. Risk Factors Assessment : Yes Do You Have Access To A Gun?: No Health Problems: Yes Mental Health Diagnoses: Yes Previous Attempt: Yes Previous Attempt; Highly Lethal: Yes Previous Attempt; Didn't Tell Anyone: Yes Family History of Suicide: Yes Previous Psychiatric Hospitalization: No Hopelessness: Yes Smoker: No Protective Factors Assessment Mormonism Beliefs: Yes Employed: Yes ([employer]) Stable Relationships: Yes Supportive Family: Yes Tobacco Cessation at Discharge Tobacco Cessation Medication Prescribed at Discharge: Not Applicable/Non-Smoker Discharge Data Lab Results 06/23/21 06/23/21 06/23/21 13:40 13:40 14:20 WBC RBC Hgb Hct MCV MCH MCHC RDW Std Deviation RDW Coeff of Amy Plt Count MPV Immature Gran % (Auto) Neut % (Auto) Lymph % (Auto) [place] % (Auto) Eos % (Auto) Baso % (Auto) Neut # (Auto) Lymph # (Auto) [place] # (Auto) Eos # (Auto) Baso # (Auto) Immature Gran # (Auto) Sodium Potassium Chloride Carbon Dioxide Anion Gap BUN Creatinine Est Cr Clr Drug Dosing Est GFR ( Amer) Est GFR (Non-Af Amer) BUN/Creatinine Ratio Glucose Fasting Glucose Calcium Total Bilirubin AST ALT Alkaline Phosphatase Total Protein Albumin Globulin Albumin/Globulin Ratio Triglycerides Cholesterol LDL Cholesterol, Calc VLDL Cholesterol, Calc HDL Cholesterol Cholesterol/HDL Ratio TSH HCG, Qual Urine Color Yellow Urine Appearance Clear Urine pH 7.5 Ur Specific [place] 1.006 Urine Protein Negative Urine Glucose (UA) Negative Urine Ketones Negative Urine Blood Negative Urine Nitrite Negative Urine Bilirubin Negative Urine Urobilinogen Negative Ur Leukocyte Esterase 2+ H Urine WBC (Auto) 1-5 Urine RBC (Auto) 0-4 U Hyaline Cast (Auto) 0 U Epithel Cells (Auto) 20-30 H Urine Bacteria (Auto) 1+ H Salicylates Urine Opiates Screen Neg Ur Methadone, Qual Neg Acetaminophen Urine Barbiturates Neg Ur Phencyclidine (PCP) Neg U Amphetamin/Meth Scrn Neg MDMA (Ecstasy) Screen Neg U Benzodiazepines Scrn Neg Ur Cocaine Metabolite Neg U Marijuana (THC) Screen Neg Ethyl Alcohol mg/dL COVID-19 Eval Order Covid19 at [facility] SARS-CoV-2 (PCR) 06/23/21 06/23/21 06/23/21 14:20 14:28 14:28 WBC 7.87 RBC 5.04 Hgb 15.0 Hct 42.6 MCV 84.5 MCH 29.8 MCHC 35.2 RDW Std Deviation 37.7 RDW Coeff of Amy 12.4 Plt Count 284 MPV 9.3 Immature Gran % (Auto) 0.1 Neut % (Auto) 74.8 Lymph % (Auto) 17.3 [place] % (Auto) 7.0 Eos % (Auto) 0.5 Baso % (Auto) 0.3 Neut # (Auto) 5.89 Lymph # (Auto) 1.36 [place] # (Auto) 0.55 Eos # (Auto) 0.04 Baso # (Auto) 0.02 Immature Gran # (Auto) 0.01 Sodium 136 Potassium 3.9 Chloride 105 Carbon Dioxide 26 Anion Gap 5.0 BUN 9 Creatinine 0.76 Est Cr Clr Drug Dosing 97.9 Est GFR ( Amer) 125.5 Est GFR (Non-Af Amer) 108.3 BUN/Creatinine Ratio 12.1 Glucose 111 H Fasting Glucose Calcium 9.3 Total Bilirubin 0.4 AST 14 L ALT 21 Alkaline Phosphatase 57 Total Protein 8.0 Albumin 4.2 Globulin 3.8 Albumin/Globulin Ratio 1.1 Triglycerides Cholesterol LDL Cholesterol, Calc VLDL Cholesterol, Calc HDL Cholesterol Cholesterol/HDL Ratio TSH 1.080 HCG, Qual Urine Color Urine Appearance Urine pH Ur Specific [place] Urine Protein Urine Glucose (UA) Urine Ketones Urine Blood Urine Nitrite Urine Bilirubin Urine Urobilinogen Ur Leukocyte Esterase Urine WBC (Auto) Urine RBC (Auto) U Hyaline Cast (Auto) U Epithel Cells (Auto) Urine Bacteria (Auto) Salicylates Urine Opiates Screen Ur Methadone, Qual Acetaminophen Urine Barbiturates Ur Phencyclidine (PCP) U Amphetamin/Meth Scrn MDMA (Ecstasy) Screen U Benzodiazepines Scrn Ur Cocaine Metabolite U Marijuana (THC) Screen Ethyl Alcohol mg/dL COVID-19 Eval Order SARS-CoV-2 (PCR) NEGATIVE 06/23/21 06/23/21 06/23/21 14:28 14:28 14:28 WBC RBC Hgb Hct MCV MCH MCHC RDW Std Deviation RDW Coeff of Amy Plt Count MPV Immature Gran % (Auto) Neut % (Auto) Lymph % (Auto) [place] % (Auto) Eos % (Auto) Baso % (Auto) Neut # (Auto) Lymph # (Auto) [place] # (Auto) Eos # (Auto) Baso # (Auto) Immature Gran # (Auto) Sodium Potassium Chloride Carbon Dioxide Anion Gap BUN Creatinine Est Cr Clr Drug Dosing Est GFR ( Amer) Est GFR (Non-Af Amer) BUN/Creatinine Ratio Glucose Fasting Glucose Calcium Total Bilirubin AST ALT Alkaline Phosphatase Total Protein Albumin Globulin Albumin/Globulin Ratio Triglycerides Cholesterol LDL Cholesterol, Calc VLDL Cholesterol, Calc HDL Cholesterol Cholesterol/HDL Ratio TSH HCG, Qual Negative Urine Color Urine Appearance Urine pH Ur Specific [place] Urine Protein Urine Glucose (UA) Urine Ketones Urine Blood Urine Nitrite Urine Bilirubin Urine Urobilinogen Ur Leukocyte Esterase Urine WBC (Auto) Urine RBC (Auto) U Hyaline Cast (Auto) U Epithel Cells (Auto) Urine Bacteria (Auto) Salicylates < 1.7 L Urine Opiates Screen Ur Methadone, Qual Acetaminophen < 2 L Urine Barbiturates Ur Phencyclidine (PCP) U Amphetamin/Meth Scrn MDMA (Ecstasy) Screen U Benzodiazepines Scrn Ur Cocaine Metabolite U Marijuana (THC) Screen Ethyl Alcohol mg/dL < 3.0 COVID-19 Eval Order SARS-CoV-2 (PCR) 06/26/21 07:21 WBC RBC Hgb Hct MCV MCH MCHC RDW Std Deviation RDW Coeff of Amy Plt Count MPV Immature Gran % (Auto) Neut % (Auto) Lymph % (Auto) [place] % (Auto) Eos % (Auto) Baso % (Auto) Neut # (Auto) Lymph # (Auto) [place] # (Auto) Eos # (Auto) Baso # (Auto) Immature Gran # (Auto) Sodium Potassium Chloride Carbon Dioxide Anion Gap BUN Creatinine Est Cr Clr Drug Dosing Est GFR ( Amer) Est GFR (Non-Af Amer) BUN/Creatinine Ratio Glucose Fasting Glucose 93 Calcium Total Bilirubin AST ALT Alkaline Phosphatase Total Protein Albumin Globulin Albumin/Globulin Ratio Triglycerides 76 Cholesterol 147 LDL Cholesterol, Calc 77 VLDL Cholesterol, Calc 15 HDL Cholesterol 55 Cholesterol/HDL Ratio 3 TSH HCG, Qual Urine Color Urine Appearance Urine pH Ur Specific [place] Urine Protein Urine Glucose (UA) Urine Ketones Urine Blood Urine Nitrite Urine Bilirubin Urine Urobilinogen Ur Leukocyte Esterase Urine WBC (Auto) Urine RBC (Auto) U Hyaline Cast (Auto) U Epithel Cells (Auto) Urine Bacteria (Auto) Salicylates Urine Opiates Screen Ur Methadone, Qual Acetaminophen Urine Barbiturates Ur Phencyclidine (PCP) U Amphetamin/Meth Scrn MDMA (Ecstasy) Screen U Benzodiazepines Scrn Ur Cocaine Metabolite U Marijuana (THC) Screen Ethyl Alcohol mg/dL COVID-19 Eval Order SARS-CoV-2 (PCR) Hospital Course (1) Depression with suicidal ideation: (2) ADHD: (3) Anxiety: 06/29/21: declines titration of Strattera given risk of GI side effects and still adjusting to Latuda. 06/28/21--Psychiatrist participated in a portion of the family meeting to review diagnostic impressions. Parents are supportive and agree with diagnoses and treatment plan. 06/27/21--Reviewed care by Dr. Aldrich in italics. Continue current meds and treatment plan. 06/26/21--Fasting glucose and lipid labs were WNL. Not acting on thoughts of self-harm. She's experiencing some sedation and emotional numbing since starting the latuda but she would like to try it for another day to see if this lessens or resolves. Discussed that if symptoms persist and latuda is discontinued then could consider augmentation with Wellbutrin or abilify or a trial of fluoxetine versus therapeutic focus on CBT/DBT strategies to manage ongoing mood symptoms. 06/25/21--Initiate latuda 20mg q dinner for augmentation of depression/BPAD 2. Ordering baseline fasting lipid and glucose labs for tomorrow morning. AIMS score=0. Will continue lexapro and strattera. 06/24/21--Discussed option to augment depression tx with latuda. Will give her mood disorder questionnaire and Christiana BPD screen to complete for diagnostic clarification. Continuing home lexapro and strattera. Adding miralax which she takes at home for constipation. 06/23/21--The patient was admitted to the [facility] ([facility] mental health unit) on q15 min checks (behavioral with suicide precautions) for safety. The patient will participate in group, recreational, and milieu therapies and will be offered additional individual and family sessions as clinically appropriate. Mental Health & Subst Abuse Tx Psychiatrist Name of Psychiatrist: Estella- *LM to be put on waiting list* Psychiatrist's Psychiatric Appointment Comment: *please follow up about wait list* Therapist Name of Therapist: [facility]- Irlanda Pena *emailed referral* Therapist's Date of Therapist Appointment: 07/08/21 Time of Therapist Appointment: 9 am Therapy Appointment Comment: [address] - *please call to give email address* Wire Turning Machine Operator Name of Wire Turning Machine Operator: None Post Discharge Appointments Primary Care Physician Name Of Family Doctor: Dr. Iggy Alanis Primary Care Date of Appointment with PCP: 07/06/21 Time of Appointment with PCP: 1:25pm Provider Appointment Comment: [address], [place] [address] Smoking Cessation Counseling Tobacco Cessation Medication Prescribed at Discharge: Not Applicable/Non-Smoker Contact Information Discharge Discharge Address: [facility] [place] [address] [address] Discharge Plan Discharge Items Patient Disposition: Home - Self-Care Reason For Visit: MDD Discharge Diagnosis: major depressive disorder with anxious distress Activity: Resume your previous activity Non-emergency contact: Primary Care Provider, Psychiatrist and Therapist Call non-emergency contact if: you have any medication questions and your symptoms worsen Follow-up/Referrals: Iggy Alanis, [Primary Care Provider] - Diet: Regular Addtl Attending Provider Instructions: SPECIAL CARE INSTRUCTIONS: 1. Follow through with your scheduled aftercare appointments. If unable to keep an appointment, please call to reschedule. 2. Take your medication only as prescribed. Medication should not be changed or stopped without the approval of your doctor. In the event of worsening symptoms or concerns about side effects, contact your doctor immediately. 3. Utilize new healthy coping skills, anger management skills, and stress management skills learned during your hospitalization. Journal feelings and process them with a support person. Identify stressors or situations that may result in relapse, deterioration or inappropriate behaviors and develop a plan to deal with those issues. 4. If your coping skills are ineffective and you are in crisis, contact your outpatient providers for direction. If unable to reach your providers, please call the [facility] CRISIS LINE AT , go to the [facility] walk-in center at [address], [address], [place], or go to the closest Emergency Room. 5. Avoid alcohol and un-prescribed drugs. 6. You have been provided with the Mental Health Advance Directives Pamphlet for your review. 7. Your condition is stable for discharge to outpatient level of care, but recovery is an ongoing process. Ifthoughts to harm yourself or others return, follow the safety plan developed during your stay. Planning for a safe return home includes securing weapons. Our treatment team recommends weaponsbe removed from the home until your outpatient provider reassesses your progress. In rare cases where the items themselvescannot be removed, guns and ammunitionshould be secured separatelyand keys stored by a reliable personoutside of the home. If you were admitted on an involuntary commitment, the police or other legal authorities may be involved in this process. AFTERCARE APPOINTMENTS: * Please call your insurance company prior to your scheduled appointment to confirm your aftercare providers are covered. Take your insurance information to your appointments. WHO TO CALL AND WHEN: Medical Emergencies: For questions or emergencies related to your hospital stay, please contact the Inpatient Behavioral Health Unit at [phone]. A tnt line supervisor is on-call 28/03 for the Behavioral Health Unit for emergencies At any time you feel your situation is an emergency, you may also call 911 immediately. Pending Studies at Discharge: No Stand-Alone Forms: My [employer], Smoking Cessation Medications and DC Order Prescriptions: New polyethylene glycol 3350 [Miralax] 17 gram Powder In Packet 17 g PO QDD PRN (Reason: Constipation) Qty: 1 RF: 0 Latuda 20 mg tablet 20 mg PO .qpm with meal Qty: 30 RF: 0 Continued atomoxetine [Strattera] 40 mg Capsule 40 mg PO DAILY RF: 0 escitalopram oxalate 20 mg Tablet 20 mg PO DAILY RF: 0 Discharge Orders: Discharge Order (Routine); Ordered 06/30/21 Ordered By: Payal Redman Admission Data Admit Date/Time: 06/23/21 18:38 Attending Provider: Payal Redman Admit Provider: Alondra Aldrich Primary Care Provider: Iggy Alanis Other Interventions: Discharge Summary Assessment (RN) Last Done: 06/30/21 10:59 PSY Interdisciplinary Discharge Planning Last Done: 06/30/21 11:03 Coding Level of Care Code 96952 D/C day mgmt > 30 min Diagnoses Depression with suicidal ideation F32.A; R45.851 ADHD F90.9 Anxiety F41.9
== END 2021-06-30 13:05 | disposition home or self-care (01) | DRG 881 ==
LOC: ED 13:19 → SUATTDRO 18:38 → 3S 18:38